=== PATIENT | male | born 1960 | race Hispanic/Latino ===

== ENCOUNTER 2021-05-12 16:28 | Emergency (ER) | payer OTHER ==
[~2021-05-12] VITALS: Ht 165.1 cm; Wt 103.0 kg
[2021-05-12 16:33] VITALS: BP 134/78
[2021-05-12 17:25] LABS: HEMATOCRIT 37.9 % (42-54); MEAN CORPUSCULAR HEMOGLOBIN 26.7 pg (27.0-33.0); MEAN CORPUSCULAR VOLUME 80.8 fL (79-99); PLATELET COUNT (AUTO) 215 K/uL (130-400); RED BLOOD CELL COUNT(AUTO) 4.69 MIL/uL (4.50-6.20); RED CELL DISTRIBUTION WIDTH 14.4 % (11.0-15.5); WHITE BLOOD COUNT (AUTO) 15.3 K/uL (4.8-10.8)
[2021-05-12] MEDS ORDERED: KETOROLAC 30MG VIAL (30MG/ML) IV ONE (17:30)
[2021-05-12 17:39] LABS: CREATININE 1.5 mg/dL (0.5-1.5); POTASSIUM 3.5 mmol/L (3.5-5.1)
[2021-05-12 17:41] LABS: BAND NEUTROPHILS % (MANUAL) 1 % (0-2); LYMPHOCYTES % (MANUAL) 8 % (22-44); MAN.DIFF COMMENT-IMPRESSION MANUAL DIFFERENTIAL; MONOCYTES % (MANUAL) 3 % (2-9); SEGMENTED NEUTROPHILS % 88 % (40-70)
[2021-05-12 17:44] LABS: BILIRUBIN,URINE Negative (NEGATIVE); COLOR,URINE Dark Yellow (YELLOW); GLUCOSE, URINE (UA) 500 mg/dL (NEGATIVE); KETONES,URINE Trace mg/dL (NEGATIVE); LEUKOCYTE ESTERASE ,URINE Large (NEGATIVE); NITRATE,URINE Negative (NEGATIVE); OCCULT BLOOD,URINE Moderate (NEGATIVE); PROTEIN,URINE POS 2+ mg/dL (NEGATIVE)
[2021-05-12 17:46] LABS: APPEARANCE,URINE CLOUDY (CLEAR)
[2021-05-12 17:54] LABS: BACTERIA,URINE Few /HPF (None Seen); SQUAMOUS EPITHELIAL CELL,UR Rare /HPF (0-2); WBC,URINE >100 /HPF (0-1)
[2021-05-12] MEDS ORDERED: SULFAMETHOX-TMP DS 800/160 TAB PO SCH (18:00)
[2021-05-12] MEDS ORDERED: CEFTRIAXONE 1G VIAL IVP ONE (18:00)
[2021-05-12] MEDS ORDERED: SULF1TAB42 PO (18:37)
[2021-05-12] MEDS ORDERED: CEPH500B PO (18:37)
[2021-05-12] MEDS ORDERED: TRAM50TA2 PO (18:37)
[2021-05-15] MEDS ORDERED: ATOR10TA69 PO (23:57)
[2021-05-15] MEDS ORDERED: VITAD50000 PO (23:57)
[2021-05-15] MEDS ORDERED: METF-444 PO (23:57)
[2021-05-15] MEDS ORDERED: HYDR25TA PO (23:57)
[2021-05-15] MEDS ORDERED: PANT20TA18 PO (23:57)
[2021-05-15] MEDS ORDERED: GLIP10TA9 PO (23:57)
[2021-05-15] MEDS ORDERED: SITA100T12 PO (23:57)
[2021-05-15] MEDS ORDERED: RIVA20TA PO (23:57)
[2021-05-15] MEDS ORDERED: LOSA100T58 PO (23:57)
[2021-05-15] MEDS ORDERED: AMLO-257 PO (23:57)
[2021-05-15] MEDS ORDERED: LIRA0.6P SQ (23:58)
== END 2021-05-12 18:49 | disposition home or self-care (01) ==
LOC: EDH 16:28
DX: N49.2 Inflammatory disorders of scrotum (principal); E11.9 Type 2 diabetes mellitus without complications; I10 Essential (primary) hypertension; Z88.5 Allergy status to narcotic agent; Z98.890 Other specified postprocedural states
CPT/HCPCS: 36415; 76870; 80048; 81001; 85025; 87077; 87088; 87186; 96374; 96375; 99284; J0696; J1885

== ENCOUNTER → 2021-10-02 | Outpatient (CLI) | payer OTHER ==
[~2021-10-02] MED LIST: AMLO-257 PO; APIX5TAB PO; ATOR10TA69 PO; CHOL2000 PO; GLIP10TA9 PO; HYDR25TA PO; LOSA100T58 PO; METF-444 PO; PANT20TA18 PO; SITA100T12 PO
== END | disposition home or self-care (01) ==
LOC: CANPRESDC → LAB 08:00 → EDSTATUS 10-06 09:00
PROVIDERS: ATTEND Surgery
DX: Z20.822 Contact with and (suspected) exposure to COVID-19 (principal)
CPT/HCPCS: 87426

== ENCOUNTER → 2022-03-12 | Outpatient (CLI) | payer OTHER | END | disposition home or self-care (01) | LOC: RAH 10:20 | PROVIDERS: ATTEND Internal Medicine | DX: M47.816 Spondylosis without myelopathy or radiculopathy, lumbar region (principal); R20.2 Paresthesia of skin; M54.31 Sciatica, right side; M54.32 Sciatica, left side | CPT/HCPCS: 72148 ==

== ENCOUNTER → 2022-09-27 | Outpatient (CLI) | payer OTHER ==
[~2022-09-27] MED LIST changes: -LOSA100T58 PO; +LOSA100T59 PO
== END | disposition home or self-care (01) ==
LOC: RAH 10:00
PROVIDERS: ATTEND Internal Medicine
DX: N63.10 Unspecified lump in the right breast, unspecified quadrant (principal)
CPT/HCPCS: 76641

== ENCOUNTER → 2023-03-30 | Outpatient (CLI) | payer OTHER | END | disposition home or self-care (01) | LOC: RAH 08:58 | PROVIDERS: ATTEND Physical Medicine & Rehabilitation | DX: M47.26 Other spondylosis with radiculopathy, lumbar region (principal); M48.10 Ankylosing hyperostosis [Forestier], site unspecified; M47.814 Spondylosis without myelopathy or radiculopathy, thoracic region; M47.812 Spondylosis without myelopathy or radiculopathy, cervical region | CPT/HCPCS: 72050; 72072; 72100 ==

== ENCOUNTER → 2023-04-07 | Outpatient (CLI) | payer OTHER | END | disposition home or self-care (01) | LOC: RAH 12:24 | PROVIDERS: ATTEND Physical Medicine & Rehabilitation | DX: M47.26 Other spondylosis with radiculopathy, lumbar region (principal); M48.10 Ankylosing hyperostosis [Forestier], site unspecified | CPT/HCPCS: 72131 ==

== ENCOUNTER → 2023-07-13 | Outpatient (CLI) | payer OTHER | END | disposition home or self-care (01) | LOC: RAH 13:54 | PROVIDERS: ATTEND Internal Medicine | DX: I70.202 Unspecified atherosclerosis of native arteries of extremities, left leg (principal); M79.672 Pain in left foot; R22.42 Localized swelling, mass and lump, left lower limb | CPT/HCPCS: 93926; 93971 ==

== ENCOUNTER → 2024-01-27 | Outpatient (CLI) | payer OTHER ==
[~2024-01-27] MED LIST changes: +GLIP10TA16 PO; -GLIP10TA9 PO
--- NOTE | 2024-01-27 11:08 | HMCIMG ---
SACRUM/COCCYX 2+VWS HISTORY: Low back pain COMPARISON: None TECHNIQUE: 3 images of sacrum and coccyx were obtained. FINDINGS: There is no acute displaced fracture or dislocation. Degenerative changes are seen. IMPRESSION: 1. Findings as described above.
--- NOTE | 2024-01-27 11:10 | HMCIMG ---
LUMBAR W FLEXION/EXTENSION REASON: LOW BACK PAIN, BACK PAIN. COMPARISON: None TECHNIQUE: 4 images of lumbar spine were obtained including flexion and extension views. FINDINGS: Calcifications are seen anterior to the L2-3, L3-4, L4-5 and L5-S1 levels. Findings are suggestive of degenerative changes. There is mild grade 1 anterolisthesis at the L4-5 level. There is straightening of normal lordotic lumbar curvature which may be related to muscle spasm or positioning. No loss of vertebral height is seen IMPRESSION: DJD with lumbar spine spondylosis.
== END | disposition home or self-care (01) ==
LOC: RAH 09:35
PROVIDERS: ATTEND Anesthesiology Pain Medicine
DX: M47.816 Spondylosis without myelopathy or radiculopathy, lumbar region (principal); M54.50 Low back pain, unspecified; M53.3 Sacrococcygeal disorders, not elsewhere classified; M43.16 Spondylolisthesis, lumbar region; M47.818 Spondylosis without myelopathy or radiculopathy, sacral and sacrococcygeal region
CPT/HCPCS: 72114; 72220

== ENCOUNTER → 2024-03-15 | Outpatient (CLI) | payer OTHER ==
[~2024-03-15] MED LIST changes: -AMLO-257 PO; -APIX5TAB PO; -ATOR10TA69 PO; -CHOL2000 PO; -GLIP10TA16 PO; -HYDR25TA PO; -LOSA100T59 PO; -METF-444 PO; -PANT20TA18 PO; +PANT40TA54 PO; -SITA100T12 PO; +SULF500T49 PO; +TELM80TA10 PO
--- NOTE | 2024-03-15 11:07 | HMCIMG ---
US ABDOMINAL COMPLETE HISTORY: Abnormal liver enzymes COMPARISON: 02/29/2024 TECHNIQUE: Multiple transverse and longitudinal ultrasound images of the abdomen were obtained. FINDINGS: Abdominal aorta and inferior vena cava are unremarkable. The visualized portion of the pancreas is within normal limits. Liver measures 17 cm. Liver is echogenic consistent with liver parenchymal disease. For bladder has been removed. Common duct measures 12 mm. No evidence of gallbladder wall thickening is seen. Both kidneys are seen. Right kidney measures 10.6 x 6.8 x 6 cm. Left kidney measures 10.7 x 6.4 x 4.5 cm. No hydronephrosis is seen of the both kidneys. The spleen is grossly unremarkable. IMPRESSION: 1. Post cholecystectomy. Common duct is borderline dilated measuring 12 mm. 2. No hydronephrosis is seen.
== END | disposition home or self-care (01) ==
LOC: RAH 08:24
PROVIDERS: ATTEND Internal Medicine
DX: R74.8 Abnormal levels of other serum enzymes (principal); Z90.49 Acquired absence of other specified parts of digestive tract
CPT/HCPCS: 76700

== ENCOUNTER 2024-08-02 05:32 | Day surgery (SDC) | payer OTHER ==
[2024-08-02] VITALS (10 sets, daily range): BP systolic 92–131; BP diastolic 51–68; PULSE 53–74; RESP 15–17; TEMP 97.5–97.7
[~2024-08-02] VITALS: Ht 165.1 cm; Wt 66.2 kg
[2024-08-02] MEDS ORDERED: TYLENOL PO (06:19)
[2024-08-02] MEDS ORDERED: HYDR25TA PO (06:19)
[2024-08-02] MEDS ORDERED: ASPI-1197 PO (06:19)
[2024-08-02] MEDS ORDERED: ROSU5TAB51 PO (06:19)
[2024-08-02] MEDS ORDERED: ASCO500C18 PO (06:19)
[2024-08-02] MEDS ORDERED: LEFL10TA19 PO (06:19)
[2024-08-02] MEDS ORDERED: MULT-1367 PO (06:19)
[2024-08-02] MEDS ORDERED: FERS325 PO (06:19)
[2024-08-02] MEDS ORDERED: NIFE90TA65 PO (06:19)
[2024-08-02] MEDS: 0.9%NACL 1000ML 1,000 ML IV ONE (06:40)
[2024-08-02] MEDS ORDERED: LIDOCAINE HCL 1% 20 ML VIAL ONE (07:10)
[2024-08-02] MEDS ORDERED: proPOFol 10 MG/ML 20ML VIAL IV ONE (07:10)
--- NOTE | 2024-08-02 08:43 | NUR ---
Full and complete discharge instructions given to Patient and Family both verbally and in writing. Explained GI procedure precautions and follow up. All questions answered. PIV removed with catheter tip intact. Home with Family W/C to POV.
== END 2024-08-02 08:40 | disposition home or self-care (01) ==
LOC: ENDO 05:32 → DAH 05:32 → ENDO 08:40
PROVIDERS: ATTEND Internal Medicine Gastroenterology
DX: D50.9 Iron deficiency anemia, unspecified (principal); K28.9 Gastrojejunal ulcer, unspecified as acute or chronic, without hemorrhage or perforation; K25.4 Chronic or unspecified gastric ulcer with hemorrhage; I10 Essential (primary) hypertension; K76.0 Fatty (change of) liver, not elsewhere classified; K31.89 Other diseases of stomach and duodenum; K44.9 Diaphragmatic hernia without obstruction or gangrene; K21.00 Gastro-esophageal reflux disease with esophagitis, without bleeding; K59.00 Constipation, unspecified; R13.10 Dysphagia, unspecified; R94.5 Abnormal results of liver function studies; E11.9 Type 2 diabetes mellitus without complications; E78.5 Hyperlipidemia, unspecified; I48.20 Chronic atrial fibrillation, unspecified; E66.9 Obesity, unspecified; Z79.899 Other long term (current) drug therapy; Z86.0101 Personal history of adenomatous and serrated colon polyps; Z79.82 Long term (current) use of aspirin; Z68.23 Body mass index [BMI] 23.0-23.9, adult; Z98.890 Other specified postprocedural states; Z90.49 Acquired absence of other specified parts of digestive tract; Z88.8 Allergy status to other drugs, medicaments and biological substances; Z98.84 Bariatric surgery status
CPT/HCPCS: 43255; 82948 ×2; 43239; 45378; J7030; J2704; A4620; C1726; A4215 ×2; A4223; A4222; A4221; A4663; A4606; J3490

== ENCOUNTER → 2024-08-23 | Outpatient (CLI) | payer OTHER ==
[~2024-08-23] MED LIST changes: +ASCO500C18 PO; +ASPI-1197 PO; +FERS325 PO; +HYDR25TA PO; +LEFL10TA19 PO; +MULT-1367 PO; +NIFE90TA65 PO; +ROSU5TAB51 PO; -SULF500T49 PO; +TYLENOL PO
--- NOTE | 2024-08-24 22:42 | HMCIMG ---
EXAM: MR Cervical Spine Without Intravenous Contrast. CLINICAL HISTORY: Pain. TECHNIQUE: Magnetic resonance images of the cervical spine in multiple planes. CONTRAST: None. COMPARISON: X-ray cervical spine dated 03/30/23. FINDINGS: The imaged posterior fossa is unremarkable. The craniocervical junction is intact. No acute fracture. Normal lordotic curvature. Normal vertebral body heights. Normal marrow signal of the vertebrae. Moderate cervical spondylosis with multilevel marginal osteophytes, facet arthropathy, disc desiccation and mild degenerative disc space reduction at C5-C6. The cervical cord is in an anatomic location. No abnormal signal involves the cord. No extra-axial masses. The surrounding soft tissues are unremarkable. Level by level disease is present as follows: C1-C2: Mild osteoarthritis. C2-C3: No disc bulge or herniation. No neural foraminal, lateral recess or spinal canal stenosis. C3-C4: 2 mm posterior disc osteophyte complex bulge. No neural foraminal, lateral recess or spinal canal stenosis. C4-C5: 3 mm posterior disc osteophyte complex bulge. Mild right and moderate left lateral recess and neural foraminal stenosis. Mild spinal canal stenosis. C5-C6: 2 mm posterior disc osteophyte complex bulge. Bilateral facet hypertrophy. Moderate bilateral lateral recess and neural foraminal stenosis. Mild spinal canal stenosis. C6-C7: 3 mm postero-central disc protrusion. Mild bilateral lateral recess and neural foraminal stenosis. Mild spinal canal stenosis. C7-T1: No disc bulge or herniation. No neural foraminal, lateral recess or spinal canal stenosis. IMPRESSION: Moderate cervical spondylosis with multilevel marginal osteophytes, facet arthropathy, disc desiccation and mild degenerative disc space reduction at C5-C6. 2-3 mm posterior disc osteophyte complex bulges at C3-C4, C4-C5 and C5-C6. 3 mm postero-central disc protrusion at C6-C7. Mild right and moderate left lateral recess and neural foraminal stenosis at C4-C5. Moderate bilateral lateral recess and neural foraminal stenosis at C5-C6. Mild bilateral lateral recess and neural foraminal stenosis at C6-C7. Mild spinal canal stenosis from C4-C5 through C6-C7. Prior x-ray cervical spine dated 03/30/23 reveals moderate cervical spondylosis. /[place]
== END | disposition home or self-care (01) ==
LOC: RAH 08:28
PROVIDERS: ATTEND Anesthesiology Pain Medicine
DX: M47.22 Other spondylosis with radiculopathy, cervical region (principal); M50.10 Cervical disc disorder with radiculopathy, unspecified cervical region; M25.78 Osteophyte, vertebrae; M48.02 Spinal stenosis, cervical region
CPT/HCPCS: 72141

== ENCOUNTER 2024-10-24 06:30 | Day surgery (SDC) | payer OTHER ==
[2024-10-24] VITALS (9 sets, daily range): BP systolic 80–159; BP diastolic 41–78; PULSE 50–71; RESP 14–18; TEMP 97.5–98
[~2024-10-24] VITALS: Ht 165.1 cm; Wt 65.8 kg
[2024-10-24] MEDS: 0.9%NACL 1000ML 1,000 ML IV ONE (07:37)
== END 2024-10-24 10:50 | disposition home or self-care (01) ==
LOC: DAH 06:30
PROVIDERS: ATTEND Internal Medicine Gastroenterology
DX: D50.9 Iron deficiency anemia, unspecified (principal); K63.5 Polyp of colon; K25.9 Gastric ulcer, unspecified as acute or chronic, without hemorrhage or perforation; K25.7 Chronic gastric ulcer without hemorrhage or perforation; I10 Essential (primary) hypertension; K21.9 Gastro-esophageal reflux disease without esophagitis; I48.91 Unspecified atrial fibrillation; E78.5 Hyperlipidemia, unspecified; K28.9 Gastrojejunal ulcer, unspecified as acute or chronic, without hemorrhage or perforation; E11.9 Type 2 diabetes mellitus without complications; K44.9 Diaphragmatic hernia without obstruction or gangrene; E66.9 Obesity, unspecified; K59.00 Constipation, unspecified; K76.0 Fatty (change of) liver, not elsewhere classified; Z86.0100 Personal history of colon polyps, unspecified; Z98.84 Bariatric surgery status; Z88.5 Allergy status to narcotic agent; Z68.34 Body mass index [BMI] 34.0-34.9, adult; Z90.49 Acquired absence of other specified parts of digestive tract; Z79.899 Other long term (current) drug therapy
CPT/HCPCS: 45380; 43239; 82948 ×2; J7030; J2704; A4620; A4215; J3490

== ENCOUNTER → 2024-12-19 | Outpatient (CLI) | payer OTHER ==
[~2024-12-19] MED LIST changes: +DIATR MEGLU/DIATRIZOATE SODIUM 30 ML BOTTLE ONE; -TYLENOL PO
--- NOTE | 2024-12-19 14:09 | HMCIMG ---
DOUBLE CONTRAST UPPER GI SERIES: Finding: The study was performed using provocative maneuvers After swallowing effervescent crystal and thick barium, there is no definite intrinsic or extrinsic lesion seen in the esophagus. There is grade 2 esophageal reflux. There is gastrojejunostomy with a patent anastomosis.. The rugal folds appear to be normal. The proximal jejunum appears to be normal with normal transit time.. The barium has reached the transverse colon by hour and a half. Fluoroscopy time: 0.7 minutes IMPRESSION: Status post partial gastrectomy with gastrojejunostomy with patent anastomosis. Small bowel follow-through demonstrated normal transit time Severe grade 2 esophageal reflux
== END | disposition home or self-care (01) ==
LOC: RAH 12-17 10:00
PROVIDERS: ATTEND Surgery
DX: K21.9 Gastro-esophageal reflux disease without esophagitis (principal); K25.4 Chronic or unspecified gastric ulcer with hemorrhage; Z90.49 Acquired absence of other specified parts of digestive tract
CPT/HCPCS: 74240; Q9963